=== PATIENT | male | born 1985 | race Caucasian/White ===

== ENCOUNTER 2018-02-16 22:59 | Observation (INO) | payer OTHER ==
[~2018-02-16] VITALS: Ht 180.3 cm; Wt 122.9 kg
[~2018-02-16 22:59] MED LIST: ACETAMINOPHEN-1 EAC1 PO; BACTRIM DS TAB1 EACH PO; LIPITOR10 MG PO; NOHOMEMEDICATIONS; PEPCID20 MG PO; VERAPAMIL ER180 MG PO; VITAMIN D1000 UNI1 PO
[2018-02-16 23:02] VITALS: BP 154/84
[2018-02-16] MEDS ORDERED: VERAPAMIL E.R240 M1 PO (23:09)
[2018-02-16 23:17] LABS: ABSOLUTE BASOPHILS 0.1 thou/uL (0.0-0.2); ABSOLUTE EOSINOPHILS 0.6 thou/uL (0.0-0.7); ABSOLUTE LYMPHOCYTES 3.9 thou/uL (0.8-5.3); ABSOLUTE MONOCYTES 1.4 thou/uL (0.0-1.2); ABSOLUTE NEUTROPHILS 5.7 thou/uL (1.6-8.1); EOSINOPHILS 5.4 %; HEMATOCRIT 46.3 % (42.0-52.0); HEMOGLOBIN 15.4 gm/dL (14.0-18.0); LYMPHOCYTES 33.2 %; MCHC 33.4 g/dL (28.0-37.0); MCV 86.8 fL (80.0-100.0); MONOCYTES 11.7 %; MPV 8.2 fl. (7.2-11.1); NUCLEATED RBCS 0 /100WBC; PLATELET COUNT* 311 thou/uL (150-400); POLYS 48.7 %; RBC 5.33 mil/uL (4.50-6.00); RDW-CV 13.3 % (10.5-14.5); WBC 11.8 thou/uL (4.0-11.0)
[2018-02-16] MEDS ORDERED: BACTRIM DS TAB1 EACH PO (23:25)
[2018-02-16] MEDS ORDERED: EXTINA50 GM TOP (23:26)
[2018-02-16] MEDS ORDERED: ASPIR 8181 MG (23:27)
[2018-02-16 23:37] LABS: ANION GAP 9 mmol/L (7-16); BUN 19 mg/dL (7-18); CALCIUM 9.5 mg/dL (8.5-10.1); CHLORIDE 103 mmol/L (98-107); CO2 28 mmol/L (21-32); GLUCOSE 100 mg/dL (70-99); POTASSIUM 3.6 mmol/L (3.5-5.1); SODIUM 140 mmol/L (136-145)
[2018-02-16 23:40] LABS: APTT 28.5 Seconds (25.0-31.3); PROTIME 9.9 Seconds (9.20-11.50)
[2018-02-16 23:48] LABS: ALBUMIN 4.4 g/dL (3.4-5.0); ALKALINE PHOSPHATASE 147 U/L (46-116); SGOT 21 U/L (15-37); SGPT 37 U/L (30-65); TOTAL BILIRUBIN 0.2 mg/dL (<0.1-1.0); TOTAL PROTEIN 8.4 g/dL (6.4-8.2); TROPONIN-I LEVEL <0.06 ng/mL (<0.06)
[2018-02-17] VITALS (7 sets, daily range): BP systolic 102–112; BP diastolic 49–67
--- NOTE | 2018-02-17 05:50 | NUR ---
PT ADMITTED TO ROOM 205 DURING THIS SHIFT; VSS, A+OX4, DENIES PAIN, CARDIZEM DRIP RUNNING. HE IS ABLE TO COMMUNICATE HIS NEEDS TO STAFF EFFECTIVELY. HE HAS DENIED THE NEED FOR PAIN MEDICATION UP TO THIS TIME. CARDIZEM DRIP TURNED OFF AT 0145 DUE TO DECREASING HEART RATE.
--- NOTE | 2018-02-17 10:26 | EKG ---
[place] [address] ELECTROCARDIOGRAM REPORT Name: KWABENA ALVARADO Room: [address] IN .R.#: [id number] Admission: 02/16/18 Attend Phys: Rolan Ford MD Discharge: Date of : 85 Report #: [id number] THIS REPORT FOR: //name// 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[employer] [facility] : 1985 Requested By: Kristin Barreto Order Number: [id number] MD: Teo Zavala Measurements Intervals [place] Rate: 122 P: OK: QRS: 41 QRSD: 92 T: -16 QT: 327 QTc: 466 Interpretive Statements Atrial fibrillation Borderline T abnormalities, inferior leads Compared to ECG 01/10/2016 07:31:14 rate has slowed Electronically Signed On 02-17-2018 10:26:37 CDT by Teo Zavala [email or web address] <ELECTRONICALLY SIGNED> By: Teo Zavala MD, [facility] 02/17/18 1026 2305 2305 Teo Zavala MD, [facility] /EPI
--- NOTE | 2018-02-17 10:28 | EKG ---
[place] [address] ELECTROCARDIOGRAM REPORT Name: KWABENA ALVARADO Room: [address] ADM IN M.R.#: [id number] Admission: 02/16/18 Attend Phys: Rolan Ford MD Discharge: Date of : 85 Report #: [id number] THIS REPORT FOR: //name// [facility] Test Date: 2018-02-17 Test Time: 05:11:02 Pat Name: KWABENA ALVARADO Department: Room: [address] Gender: M [employer]: : 1985 Requested By: Kristin Barreto Order Number: [id number] Lui MD: Teo Zavala Measurements Intervals [place] Rate: 54 P: 40 NE: 135 QRS: 52 QRSD: 95 T: 33 QT: 428 QTc: 406 Interpretive Statements Sinus bradycardia Abnormal inferior Q waves ST elev, probable normal early repol pattern Electronically Signed On 02-17-2018 10:27:51 CDT by Teo Zavala [email or web address] <ELECTRONICALLY SIGNED> By: Teo Zavala MD, [facility] 02/17/18 [phone] Teo Zavala MD, FACC /EPI
[2018-02-17] MEDS ORDERED: ASPIRIN325 PO (10:31)
--- NOTE | 2018-02-17 13:50 | 2DMMODE ---
[place] [address] 2 D/M-MODE ECHOCARDIOGRAM Name: KWABENA ALVARADO Room: [address] Cricket Mooney#: [id number] Admission: 02/16/18 Attend Phys: Rolan Ford, Discharge: Date of : 85 Date of Service: 02/17/18 1350 Report #: [id number] THIS REPORT FOR: //name// APPROVED REPORT Study performed: 02/17/2018 11:49:04 EXAM: Comprehensive 2D, Doppler, and color-flow Echocardiogram Patient Location: In-Patient Room #: [facility] Status: routine BSA: 2.40 HR: 64 bpm BP: 111/57 mmHg Rhythm: NSR Other Information Study Quality: Good Indications Atrial Fibrillation 2D Dimensions LVEF(%): 76.13 (>50%) IVSd: 10.80 (7-11mm) LVOT Diam: 19.92 (18-24mm) LVDd: 46.70 mm PWd: 10.66 (7-11mm) Ascending Ao: 28.09 (22-36mm) LVDs: 25.77 (25-40mm) Aortic Root: 32.40 mm Montanez's LVEF: 76.13 % Volumes Left Atrial Volume (Systole) LA ESV Index: 22.80 mL/m2 Aortic Valve AoV Peak Bertram.: 1.69 m/s AO Peak Gr.: 11.38 mmHg LVOT Max P.25 mmHg AO Mean Gr.: 5.82 mmHg LVOT Mean P.98 mmHg LVOT Max V: 1.25 m/s AO V2 VTI: 33.63 cm LVOT Mean V: 0.79 m/s ABRAHAM (VTI): 2.56 cm2 LVOT V1 VTI: 27.66 cm Mitral Valve E/A Ratio: 2.33 [place] [address] 2 D/M-MODE ECHOCARDIOGRAM Name: KWABENA ALVARADO Room: [address] Vinicio#: [id number] Admission: 02/16/18 Attend Phys: Rolan Ford, Discharge: Date of : 85 Date of Service: 02/17/18 1350 Report #: [id number] MV Decel. Time: 209.27 ms MV E Max Bertram.: 1.24 m/s MV PHT: 60.69 ms MVA (PHT): 3.63 cm2 TDI E/Lateral E': 6.53 E/Medial E': 9.54 Medial E' Bertram.: 0.13 m/s Lateral E' Bertram.: 0.19 m/s Pulmonary Valve PV Peak Bertram.: 1.26 m/s PV Peak Gr.: 6.34 mmHg Left Ventricle The left ventricle is normal size. There is normal LV segmental wall motion. There is normal left ventricular wall thickness. Left ventricular systolic function is normal. The left ventricular ejection fraction is within the normal range. LVEF is 65-70%. The left ventricular diastolic function is normal. Right Ventricle The right ventricle is normal size. The right ventricular systolic function is normal. Atria The left atrium size is normal. The right atrium size is normal. Aortic Valve The aortic valve is normal in structure. No aortic regurgitation is present. There is no aortic valvular stenosis. Mitral Valve The mitral valve is normal in structure. Trace mitral regurgitation. No evidence of mitral valve stenosis. Tricuspid Valve The tricuspid valve is normal in structure. Unable to assess PA pressure. Trace tricuspid regurgitation. Pulmonic Valve The pulmonary valve is normal in structure. There is no pulmonic valvular regurgitation. Great Vessels The aortic root is normal in size. IVC [place] [address] 2 D/M-MODE ECHOCARDIOGRAM Name: KWABENA ALVARADO Room: [address] MLinhRLinh#: [id number] Admission: 02/16/18 Attend Phys: Rolan Ford, Discharge: Date of : 85 Date of Service: 02/17/18 1350 Report #: [id number] collapses with >50% inspiration Pericardium There is no pericardial effusion. <Conclusion> Left ventricular systolic function is normal. The left ventricular ejection fraction is within the normal range. <ELECTRONICALLY SIGNED> By: Teo Zavala MD, FACC 02/17/18 1350 1350 1350 Teo Zavala MD, FAC /INF
[2018-02-17] MEDS ORDERED: FLECAINIDE ACET50 M2 PO (14:24)
--- NOTE | 2018-02-20 07:19 | CON ---
[address] [address] CONSULTATION Name: KWABENA ALVARADO Room: [address] Cricket Mooney#: [id number] Admission: 02/16/18 Attend Phys: Rolan Ford MD Discharge: 02/17/18 Date of : 85 Report #: [id number] THIS REPORT FOR: //name// CC: Rolan Mann [facility] Abby Guerra DATE OF SERVICE: 02/17/2018 HISTORY OF PRESENT ILLNESS: The patient is a 32-year-old white male who I was asked to see in the hospital today after an episode of atrial fibrillation. The patient initially presented here to [place] in December 2015. At that time, he was doing well, but was getting ready to go to work when he felt his heart beating fast and irregular. He came here to [place] and was found to be in atrial fibrillation. He converted to sinus rhythm. He was seen by my partner, Dr. Dick, who told him to avoid caffeine. The patient was also drinking one Monster a day. At that time, Dr. Dick told him to avoid Monster drinks with caffeine. He did have no further workup at that time and was discharged on verapamil SR 180 mg a day, which he has taken since that time. Apparently, the patient never returned for followup or testing. However, he has had no significant palpitations since that time. Of note is that last March, he was at work on a ladder when he fell and suffered brain injury. He was hospitalized for 3 weeks at [place] with aphasia. His speech gradually returned after he went to rehabilitation. He has now completely recovered. He notes that yesterday, he felt his heart beating fast and irregular. This persisted, so he came to the Emergency Room. He was found to be in atrial fibrillation. He was started on IV diltiazem. He converted to sinus rhythm. I was asked to see him for further evaluation and treatment. He does not exercise on a regular basis. He stays fairly active. Denies any exertional dyspnea, chest pain, syncope, or edema. He did have a heart murmur as a child. PAST MEDICAL HISTORY: Significant for no other major surgical procedures. He has no previous history of high blood pressure, diabetes. He has been told in the past he has high cholesterol. MEDICATIONS: Consists of Lipitor 10 mg a day and aspirin a day, Pepcid 20 mg a day, verapamil SR 240 mg a day. ALLERGIES: He has no known drug allergies. FAMILY HISTORY: His grandmother had a pacemaker. No other history of coronary artery disease. SOCIAL HISTORY: He is . He and his live in [place]. 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 No smoking and no alcohol abuse. He has about 1 cup [place] [address] CONSULTATION Name: KWABENA ALVARADO Room: [address] Cricket Mooney#: [id number] Admission: 02/16/18 Attend Phys: Rolan Ford MD Discharge: 02/17/18 Date of : 85 Report #: [id number] REVIEW OF SYSTEMS: He has had no history of stroke, asthma, peptic ulcer disease, liver disease, kidney disease, cancer, psychiatric illness, chronic skin condition. He does wear glasses. He is overweight, being 5 feet 11 inches, 270 pounds. PHYSICAL EXAMINATION: GENERAL: Revealed a young white male who appeared in no acute distress. VITAL SIGNS: He had a blood pressure of 120/70, pulse 70, he is afebrile. HEENT: He is anicteric. Conjunctivae pink. Mucous members are moist. NECK: Veins nondistended. No carotid bruits. Neck is supple. CHEST: Clear to auscultation. CARDIOVASCULAR: Regular rate and rhythm without murmur. ABDOMEN: Obese, soft, nontender. EXTREMITIES: Had no edema. The posterior tibial pulse is 3+ bilaterally. SKIN: Warm, dry. NEUROLOGIC: Nonfocal. DIAGNOSTIC DATA: ECG on admission yesterday showed atrial fibrillation with an increased ventricular response rate. No significant ST or T-wave changes. RADIOLOGICAL DATA: ECG today shows sinus bradycardia again with no ST or T-wave changes. Workup, the patient had a chest x-ray in the emergency room yesterday that showed cardiomegaly, otherwise clear lung stone, previous clavicular fracture noted. LABORATORY DATA: Sodium 140, creatinine 1.0. Liver function studies were normal. His TSH was mildly elevated at 7.0, although T4 was normal at 1.0. His white blood cell count was 11.8, hemoglobin 15.4. IMPRESSION AND RECOMMENDATIONS: 1. Paroxysmal atrial fibrillation. Recommend echocardiogram. I will continue verapamil. At this time, I would recommend giving the patient a prescription for verapamil. Certainly, if he has recurrent palpitations, I did recommend he take a dose of the verapamil. Since he has a FABIO score of 0, I would not recommend anticoagulation at this time. 2. Previous traumatic brain injury. 3. Hyperlipidemia. The patient is on a statin drug. 4. Obesity. I would recommend diet and exercise in an effort to lose weight. I think it is reasonable at this time to discharge the patient. I will see him in followup in the cardiology clinic. <ELECTRONICALLY SIGNED> By: Teo Zavala MD, FACC 02/20/18 0719 1120 [id number] Zavala MD, FACC /nt
== END 2018-02-17 14:30 | disposition home or self-care (01) ==
LOC: M.ERS 22:59 → M.2W 23:39 → M.TBA-ER 23:39 → M.2W 23:39
PROVIDERS: Personal Emergency Response Attendant; ADMIT Internal Medicine
DX: I48.0 Paroxysmal atrial fibrillation (principal); E66.9 Obesity, unspecified; R21 Rash and other nonspecific skin eruption; I10 Essential (primary) hypertension; E78.5 Hyperlipidemia, unspecified; R94.6 Abnormal results of thyroid function studies; Z79.82 Long term (current) use of aspirin; Z87.820 Personal history of traumatic brain injury; Z72.89 Other problems related to lifestyle